=== PATIENT | male | born 1985 | race African-American/Black ===

== ENCOUNTER 2022-02-12 06:43 | Emergency (ER) | payer SELFPAY ==
[~2022-02-12] VITALS: Ht 188 cm; Wt 86.4 kg
[2022-02-12 06:47] VITALS: TEMP 97.6
[2022-02-12 07:07] LABS: BASO # 0.1 K/mm3 (0.0-0.2); BASO % 0.8 % (0.0-2.0); EOS # 0.3 K/mm3 (0.0-0.7); GRAN % 36.1 % (42.2-75.2); HEMATOCRIT 41.4 % (42.0-52.0); HEMOGLOBIN 15.4 g/dl (13.5-18.0); LYMPH # 4.3 K/mm3 (1.2-3.4); LYMPH % 51.4 % (20.0-51.0); MEAN CELL VOLUME 90 fl (80.0-100.0); MEAN CORPUSCULAR HEMOGLOBIN 34 pg (27-31); MEAN CORPUSCULAR HGB CONC 37 g/dl (33.0-37.0); MEAN PLATELET VOLUME 8.7 fl (7.4-10.4); MONO # 0.7 K/mm3 (0.1-0.6); MONO % 8.3 % (1.7-9.3); PLATELET COUNT 267 K/mm3 (130-400); RED BLOOD COUNT 4.58 M/mm3 (4.20-5.60); REDCELL DISTRIBUTION WIDTH-CV 12.6 % (11.5-14.5)
[2022-02-12 07:19] LABS: ALANINE AMINOTRANSFERASE 16 U/L (0-55); ALBUMIN 4.2 gm/dL (3.5-5.0); ALKALINE PHOSPHATASE 105 U/L (40-150); ANION GAP 14 mmol/L (7-16); AST,SGOT 22 U/L (5-34); BILIRUBIN,TOTAL 0.7 mg/dL (0.2-1.2); BLOOD UREA NITROGEN 6 mg/dL (9-21); CALCIUM 9.1 mg/dL (8.4-10.2); CARBON DIOXIDE 20 mmol/L (22-29); CHLORIDE 107 mmol/L (98-107); CREATININE, serum 1.07 mg/dL (0.72-1.25); GLUCOSE 96 mg/dL (70-99); POTASSIUM 3.2 mmol/L (3.5-4.5); SODIUM 141 mmol/L (136-145)
[2022-02-12 07:21] LABS: TROPONIN-I < 0.010 ng/mL (0.00-0.033)
[2022-02-12] MEDS ORDERED: NORCO 325 MG-51 TAB PO (08:07)
[2022-02-12] MEDS ORDERED: MOTRIN 800800 MG/TAB PO (08:07)
[2022-02-12 08:18] VITALS: BP 150/86; PULSE 73
== END 2022-02-12 08:18 | disposition home or self-care (01) ==
LOC: COL.ER 06:43
PROVIDERS: Emergency Medicine
DX: R06.02 Shortness of breath (principal); R07.89 Other chest pain; Z28.310 Unvaccinated for COVID-19
CPT/HCPCS: J1885; J2060; Q9967

== ENCOUNTER 2023-07-13 08:45 | Emergency (ER) | payer SELFPAY ==
[~2023-07-13] VITALS: Ht 190.5 cm; Wt 84.1 kg
[~2023-07-13 08:45] MED LIST: MOTRIN 800800 MG/TAB PO; NORCO 325 MG-51 TAB PO
[2023-07-13 08:49] VITALS: TEMP 98
[2023-07-13 10:11] LABS: BASO # 0.1 K/mm3 (0.0-0.2); BASO % 0.7 % (0.0-2.0); EOS # 0.1 K/mm3 (0.0-0.7); EOS % 1.2 % (0.0-4.0); GRAN # 4.4 K/mm3 (1.4-6.5); HEMATOCRIT 42.8 % (42.0-52.0); HEMOGLOBIN 15.3 g/dl (13.5-18.0); LYMPH # 2.2 K/mm3 (1.2-3.4); LYMPH % 29.3 % (20.0-51.0); MEAN CELL VOLUME 93 fl (80.0-100.0); MEAN CORPUSCULAR HEMOGLOBIN 33 pg (27-31); MEAN CORPUSCULAR HGB CONC 36 g/dl (33.0-37.0); MEAN PLATELET VOLUME 9.1 fl (7.4-10.4); MONO # 0.7 K/mm3 (0.1-0.6); MONO % 9.4 % (1.7-9.3); PLATELET COUNT 282 K/mm3 (130-400); RED BLOOD COUNT 4.62 M/mm3 (4.20-5.60); REDCELL DISTRIBUTION WIDTH-CV 13.6 % (11.5-14.5)
[2023-07-13] MEDS ORDERED: Ondansetron 4 MG/2 ML VIAL IV ONE (10:15)
[2023-07-13] MEDS ORDERED: NS 1,000 ML IV ONE (10:15)
[2023-07-13 10:33] LABS: ALBUMIN 4.2 g/dL (3.5-5.0); BILIRUBIN,TOTAL 0.9 mg/dL (0.2-1.2); CALCIUM 9.5 mg/dL (8.4-10.2); CREATININE, serum 0.95 mg/dL (0.72-1.25); POTASSIUM 3.6 mEq/L (3.5-4.5); TOTAL PROTEIN 7.6 g/dl (6.2-8.1)
[2023-07-13] MEDS ORDERED: ZOFRAN ODT4 MG PO (10:37)
[2023-07-13 10:45] VITALS: BP 123/93; PULSE 66
== END 2023-07-13 10:58 | disposition home or self-care (01) ==
LOC: COL.ER 08:45
PROVIDERS: Physician Assistant
DX: S60.552A Superficial foreign body of left hand, initial encounter (principal); R10.9 Unspecified abdominal pain; R74.01 Elevation of levels of liver transaminase levels; R11.0 Nausea; Z87.891 Personal history of nicotine dependence; W45.8XXA Other foreign body or object entering through skin, initial encounter
CPT/HCPCS: A4314; J2405; J7030

== ENCOUNTER → 2023-08-12 | Emergency (ER) | payer SELFPAY ==
[~2023-08-12] MED LIST changes: +Iohexol 300 - 100 ML VIAL IV ONE; +NS 100 ML IV SCH; +ZOFRAN ODT4 MG PO
== END ==
LOC: COL.ER 17:37
DX: R10.11 Right upper quadrant pain (principal); F17.200 Nicotine dependence, unspecified, uncomplicated
CPT/HCPCS: Q9967